=== PATIENT | female | born 1950 | race African-American/Black ===

== ENCOUNTER → 2019-11-12 | Outpatient (CLI) | payer MEDICARE ==
--- NOTE | 2019-11-12 11:55 | RAD ---
CT CHEST WO CONTRAST Indication: Family history of malignant neoplasm, osteopenia Technique: Noncontrast CT imaging was performed of the chest, multiplanar reconstruction images submitted. One or more of the following individualized dose reduction techniques were utilized for this examination: 1. Automated exposure control 2. Adjustment of the mA and/or kV according to patient size 3. Use of iterative reconstruction technique. Comparison: None Findings: There is no infiltrate, pleural or pericardial fluid, or pneumothorax. Major airways are patent. There are some hypodense foci of the bilateral thyroid gland, largest on the left estimated about 1.1 cm and on the right about 1.4 cm. There is questionable 0.5 cm medial right middle lobe nodule image 232 series 2 abutting the mediastinal border. There is tiny 0.2 cm right lower lobe nodule image 244 series 2. There is mild thoracic spondylosis. Thoracic vertebral body stature is maintained. There is mild linear atelectasis or fibrotic change of the lingula. There is multilevel cervical and thoracic facet degenerative change. There are some small mediastinal nodes, no significantly enlarged nodes identified of the chest. There is a round 0.9 cm right breast mass image 205 series 2 located inferior and slightly medial to the nipple. IMPRESSION: 1. There are hypodense foci of the bilateral thyroid gland, more accurately characterized by ultrasound. 2. There is possible small right middle lobe nodule although could be atelectasis. There is also a tiny right lower lobe pulmonary nodule. Optional 12 month follow-up could be performed if increased risk factors for neoplasm as per revised Fleischner guidelines, otherwise no additional follow-up needed if low risk factors. 3. There is round right breast mass more accurately evaluated by mammography and ultrasound. Electronically signed by: Guy Ferreira MD (11/12/2019 11:52 AM) [place] [id number]
--- NOTE | 2019-11-12 12:37 | RAD ---
EXAM: DUAL ENERGY X-RAY ABSORPTIOMETRY (DEXA). HISTORY: Postmenopausal screening. FINDINGS: The lowest measured T-score is -0.4 in the lumbar spine, based on a bone mineral density of 1.098 g/cm^2. Refer to the worksheets for full detail. No comparison examinations are available. IMPRESSION: Normal. Bone mineral density yields a T-score of -1.0 or greater. Fracture risk is low. METHODOLOGY: Dual energy x-ray absorptiometry was performed to measure bone mineral density. The following analysis is based on the 2019 Official Positions of the International Society for Clinical Densitometry: Measurements of the hips and the average of L1-L4 are preferred. When the spine and/or hip cannot be feasibly measured or interpreted, or in the setting of hyperparathyroidism, distal radial bone mineral density may be measured. The lumbar spine T-score is based on the average bone mineral density of L1-L4. In the setting of artifact or anatomic abnormality, some lumbar levels may be excluded, and the remaining levels used for calculation. A single lumbar level is not used for diagnosis, and if only a single level is available for assessment, another anatomic site will be used to assign a diagnosis. The hip T-score is based on the bone mineral density measurement of the femoral neck or total proximal femur of either side, whichever is lowest. Bilateral mean values are not used for diagnosis. The forearm T-score is derived from 33% of the distal radius of the nondominant forearm. Electronically signed by: Sona Dougherty MD (11/12/2019 12:34 PM) [id number]
== END | disposition home or self-care (01) ==
LOC: CT 10:06
PROVIDERS: ATTEND Physician Assistant
DX: Z13.820 Encounter for screening for osteoporosis (principal); Z00.00 Encounter for general adult medical examination without abnormal findings; M85.80 Other specified disorders of bone density and structure, unspecified site; R91.1 Solitary pulmonary nodule; M47.813 Spondylosis without myelopathy or radiculopathy, cervicothoracic region; Z78.0 Asymptomatic menopausal state; N63.10 Unspecified lump in the right breast, unspecified quadrant; Z82.62 Family history of osteoporosis; Z80.1 Family history of malignant neoplasm of trachea, bronchus and lung
CPT/HCPCS: 71250; 77080

== ENCOUNTER → 2019-11-26 | Outpatient (CLI) | payer MEDICARE ==
[~2019-11-26] MED LIST: AMLO-427 PO; ASPI-630 PO; FAMO40TA4 PO; LISI40TA PO
--- NOTE | 2019-11-26 16:24 | RAD ---
INDICATION: Reason: THYROID NODULE / Spl. Instructions: / History: COMPARISON: None. TECHNIQUE: Grayscale and color ultrasound images obtained of the thyroid. FINDINGS: Right Lobe: 48 x 21 x 26 mm. Left Lobe: 50 x 20 x 18 mm. Multiple bilateral thyroid nodules are identified. This includes a solid nodule in the right measuring 16 x 14 mm as well as an additional solid nodule measuring 17 x 14 mm. There is also multiple left lobe of thyroid nodules including a solid nodule measuring 16 x 12 mm. IMPRESSION: * Multiple bilateral thyroid nodules are identified. This includes a dominant nodule in the right and dominant nodule in the left measuring up to 16 mm. One of the nodules on the right appears hypoechoic with the other dominant nodules appearing hyperechoic. Further workup option includes either obtaining a follow-up ultrasound in a few months to ensure no growth or percutaneous biopsy. Electronically signed by: Aditya Lockhart MD (11/26/2019 4:21 PM) [id number]
--- NOTE | 2019-11-26 17:10 | RAD ---
EXAMINATION: BREAST BILATERAL, MAMMO NICOLE DIAG BILAT History: Reason: RIGHT BREAST LUMP, ABNORMAL LT BREAST MAMMO / Spl. Instructions: / History: Comparison: 12/21/2015. Mammogram. 11/12/2019 CT chest without contrast. Technique: Bilateral digital diagnostic mammogram views were obtained. CAD was utilized. 3-D tomosynthesis images were acquired. Findings: Breast Tissue Density B : There are scattered areas of fibroglandular density. Multiple masses bilaterally involving the breasts are stable. Contrast involving the right breast described on the CT exam of 11/12/2019 at a corresponding finding on the current and previous mammograms no new masses or distortion. No suspicious calcification. Right breast ultrasound exam at the 6:00 region 5 cm from nipple demonstrates a hypoechoic well-circumscribed mass measuring 0.9 cm x 1 cm x 0.6 cm tall. No flow within it. No enlarged axillary lymph nodes. The right breast 10:30 region, there is a intramammary lymph node measuring 0.3 cm diameter and this is 7 cm from the nipple. Left breast ultrasound in 6:00 region demonstrates a hypoechoic mass measuring 0.5 cm x 0.5 cm x 0.4 cm tall. No flow within it. Left axilla is unremarkable. No suspicious subareolar findings involving the right or left breast. Ultrasound was also performed at the left chest wall 11:00 region 11 cm from the nipple where patient reports a palpable abnormality. No suspicious finding is evident. Patient reports palpable abnormality. There is a 0.4 cm diameter hyperechoic structure at this site which may represent an oil cyst however. IMPRESSION: No mammographic evidence of malignancy. Recommend routine screening. BI-RADS category 1: Negative. The images were reviewed with computer aided detection. Patient information is entered into the reminder system with a target due date for the next screening mammogram. Mammography is the most sensitive method for finding small breast cancers, but it does not detect them all and is not a substitute for careful clinical examination. A negative mammogram does not negate a clinically suspicious finding and should not result in delay in biopsying a clinically suspicious abnormality. "Our facility is accredited by the [employer] Mammography Program." Electronically signed by: Haresh Mack MD (11/26/2019 5:07 PM) [place] [id number]
== END | disposition home or self-care (01) ==
LOC: MAMMO 12:52
PROVIDERS: ATTEND Physician Assistant
DX: E04.2 Nontoxic multinodular goiter (principal); R92.2 Inconclusive mammogram; N63.14 Unspecified lump in the right breast, lower inner quadrant; N63.11 Unspecified lump in the right breast, upper outer quadrant
CPT/HCPCS: 76536; 76641; 77066; G0279; 77062

== ENCOUNTER → 2019-11-28 | Outpatient (CLI) | payer MEDICARE | END | disposition home or self-care (01) | LOC: LAB 08:51 | PROVIDERS: ATTEND Registered Nurse | DX: Z01.812 Encounter for preprocedural laboratory examination (principal); Z20.828 Contact with and (suspected) exposure to other viral communicable diseases | CPT/HCPCS: U0003-CS ==

== ENCOUNTER → 2019-12-02 | Outpatient (CLI) | payer MEDICARE | END | disposition home or self-care (01) | LOC: LAB 06:53 | PROVIDERS: ATTEND Registered Nurse | DX: Z01.812 Encounter for preprocedural laboratory examination (principal); Z20.828 Contact with and (suspected) exposure to other viral communicable diseases; Z12.11 Encounter for screening for malignant neoplasm of colon | CPT/HCPCS: 87426; U0003 ==

== ENCOUNTER → 2019-12-02 | Day surgery (SDC) | payer MEDICARE ==
[~2019-12-02] MED LIST changes: +IPRATRPIUM/ALBUTEROL 0.5/2.5MG 3 ML NEBU. NEB PRN; +IV RINGERS SOLUTION,LACTATED 1,000 ML IV SCH; +MIDAZOLAM HCL PF 2 MG/2 ML VIAL. IV ONE; +ONDANSETRON PF 4 MG/2 ML VIAL. IV PRN; +PROPOFOL 10,000 MCG/ML (20ML) VIAL IV ONE
[2019-12-02 11:26] VITALS: BP 122/65
== END | disposition home or self-care (01) ==
LOC: SURG 09:10
PROVIDERS: ATTEND Emergency Medicine
DX: Z12.11 Encounter for screening for malignant neoplasm of colon (principal); K57.30 Diverticulosis of large intestine without perforation or abscess without bleeding; I10 Essential (primary) hypertension; Z79.899 Other long term (current) drug therapy; Z86.010 Personal history of colon polyps; Z98.890 Other specified postprocedural states; Z79.82 Long term (current) use of aspirin
CPT/HCPCS: G0105; J2704; J7120; 45378

== ENCOUNTER → 2020-12-09 | Outpatient (CLI) | payer MEDICARE ==
[2019-12-02 11:26] VITALS: BP 122/65
[~2020-12-09] MED LIST changes: -IPRATRPIUM/ALBUTEROL 0.5/2.5MG 3 ML NEBU. NEB PRN; -IV RINGERS SOLUTION,LACTATED 1,000 ML IV SCH; -LISI40TA PO; +LISI40TA6 PO; -MIDAZOLAM HCL PF 2 MG/2 ML VIAL. IV ONE; -ONDANSETRON PF 4 MG/2 ML VIAL. IV PRN; -PROPOFOL 10,000 MCG/ML (20ML) VIAL IV ONE
--- NOTE | 2020-12-09 16:27 | RAD ---
Bilateral screening mammogram with tomography dated 12/09/2020. INDICATION: 69 years of age asymptomatic female patient presents for screening mammography. Screening TECHNIQUE: Full field craniocaudal and mediolateral oblique images of both breasts were obtained usi ng digital technique with tomosynthesis and also analyzed with computer-aided detection software. . COMPARISON: 12/25/2017 and 11/26/2019 .. BREAST COMPOSITION: Category B: There are scattered fibroglandular densities. FINDINGS: There are circumscribed nodular foci within both breasts that are unchanged from prior study. No susp icious mass or clustered microcalcification. No architectural distortion. IMPRESSION: Stable bilateral mammogram. RECOMMENDATION: Annual screening mammography is recommended, unless clinically indicated sooner based on symptoms or change in physical exam. BIRADS 2: BENIGN This study was interpreted with the benefit of Computerized Aided Detection (CAD). Recommend follow-up screening mammogram in one year. Patient information is entered into the reminder system with a target due date for the next screening mammogram. Mammography is the most sensitive method for finding small breast cancers, but it does not detect the m all and is not a substitute for careful clinical examination. A negative mammogram does not negate a clinically suspicious finding and should not result in delay in biopsying a clinically suspicious a bnormality. "Our facility is accredited by the [employer] Mammography Program." Electronically signed by: Brett Tavares MD (12/09/2020 4:25 PM) [id number]
== END ==
LOC: MAMMO 14:23
PROVIDERS: ATTEND Physician Assistant
DX: Z12.31 Encounter for screening mammogram for malignant neoplasm of breast (principal)
CPT/HCPCS: 77063; 77067